=== PATIENT | female | born 1935 | race Caucasian/White ===

== ENCOUNTER 2021-04-02 09:35 | Inpatient (IN) | payer MEDICARE, BC ==
[2021-04-02] MEDS ORDERED: Sodium Chloride 0.9% 10 ML Syringe FLUSH PRN (09:43)
--- NOTE | 2021-04-02 10:01 | EDM.PDOC ---
ED HPI GENERAL MEDICAL PROBLEM - General Chief Complaint: Neuro Symptoms/Deficits Stated Complaint: MEDICAL [facility]IA [facility] Time Seen by Provider: 04/02/21 09:50 Source of Information: Reports: Patient, EMS, Family, Old Records History Limitations: Reports: Other (speech deficit) - History of Present Illness INITIAL COMMENTS - FREE TEXT/NARRATIVE: 85 yo female was found this AM on the floor of her apartment, lives in an assisted living situation. No known hx of afib. Has dementia. Is on ASA and Plavix. Not able to speak when found. Later developed R sided weakness that was not obviously there when found. Is a full code. 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: Other (see below) (none) - Related Data Allergies Allergy/AdvReac Type Severity Reaction Status Date / Time No Known Allergies Allergy Verified 04/02/21 09:44 Home Meds: Home Meds Aspirin [Halfprin] 81 mg PO DAILY 02/01/16 [History] Cholecalciferol (Vitamin D3) [Vitamin D3] 5,000 units PO DAILY 02/01/16 [History] Clopidogrel [Plavix] 75 mg PO DAILY 02/01/16 [History] Donepezil HCl [Aricept] 10 mg PO DAILY 02/01/16 [History] Losartan Potassium [Cozaar] 50 mg PO DAILY 02/01/16 [History] Memantine HCl [Namenda Xr] 28 mg PO DAILY 02/01/16 [History] Multivitamin with Minerals [Multiple Vitamin] 1 tab PO DAILY 02/01/16 [History] Naproxen [IJD: Naproxen] 500 mg PO BID PRN 02/01/16 [History] Polyethylene Glycol/Polyvinyl [Hypotears Eye Drops] 2 drop EYEBOTH BID 02/01/16 [History] amLODIPine [Norvasc] 5 mg PO DAILY 02/01/16 [History] atorvaSTATin [Lipitor] 40 mg PO DAILY 02/01/16 [History] carvediloL [Coreg] 25 mg PO BID 02/01/16 [History] raNITIdine HCl [Zantac] 300 mg PO DAILY 02/01/16 [History] Cefdinir [Omnicef] 300 mg PO BID #10 cap 02/03/16 [Rx] Insulin Glarg,Human.Rec.Analog [Lantus Solostar] 17 units SUBCUT BEDTIME #0 02/03/16 [Rx] Insulin Lispro [HumaLOG] 3 units SUBCUT TID #0 02/03/16 [Rx] Past Medical History HEENT History: Reports: Impaired Vision, Other (See Below) Other HEENT History: chronic dry eye Cardiovascular History: Reports: Hypertension Gastrointestinal History: Reports: GERD Genitourinary History: Reports: Chronic Renal Insuffiency, Renal Disease 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: Musculoskeletal History: Reports: Arthritis Neurological History: Reports: Alzheimers Disease Endocrine/Metabolic History: Reports: Diabetes, Type II, Osteoporosis - Infectious Disease History Infectious Disease History: Reports: Measles, Mumps - Past Surgical History Cardiovascular Surgical History: Reports: Carotid Endarterectomy Female Surgical History: Reports: Tubal Ligation ED ROS GENERAL - Review of Systems Review Of Systems: Unable To Obtain (expressive aphasia) Reason Not Obtained: CVA with expressive aphasia/dementia ED EXAM, NEURO - Physical Exam Exam: See Below Exam Limited By: No Limitations General Appearance: Alert, WD/WN, No Apparent Distress Eye Exam: Bilateral Eye: EOMI, Normal Inspection, PERRL (pupils equal, but pinpoint and minimally reactive to light) Ears: Normal External Exam, Normal Canal, Hearing Grossly Normal, Normal TMs Nose: Normal Inspection, No Blood Throat/Mouth: Normal Inspection, Normal Lips, Normal Oropharynx, No Airway Compromise Head Exam: Atraumatic, Normocephalic Neck: Normal Inspection Respiratory/Chest: No Respiratory Distress, Lungs Clear, Normal Breath Sounds, No Accessory Muscle Use Cardiovascular: No Edema, Irregularly Irregular GI/Abdominal: Normal Bowel Sounds, Soft, Non-Tender, No Distention Neurological: Alert, Other (hand grasp 4/5 bilat. Unable to lift either leg off the bed. Has more movement with the L arm, but unable to raise either over her head. ). No: Normal Mood/Affect, No Motor/Sensory Deficits, Oriented x 3 Extremities: Normal Inspection, Non-Tender, No Pedal Edema Psychiatric: Flat Affect Skin Exam: Warm, Dry, Intact, Normal Color, No Rash #1 Interpretation EKG Date: 04/02/21 Time: 10:10 Rhythm: NSR Rate (Beats/Min): 67 Bricelyn: Normal P-Wave: Present QRS: Normal ST-T: Normal QT: Normal Comparison: No Change Course - Vital Signs Text/Narrative:: Dr. Humphreys called @ 1130h Last Recorded V/S: Last Vital Signs Temp 36.8 C 04/02/21 10:11 Pulse 73 04/02/21 10:11 Resp 22 H 04/02/21 10:11 BP Pulse Ox 98 04/02/21 10:11 - Orders/Labs/Meds Orders: Active Orders 24 hr Category Date Time Status Cardiac Monitoring [RC] .As Directed Care 04/02/21 09:42 Active EKG Documentation Completion [RC] ASDIRECTED Care 04/02/21 09:51 Active CPK [CREATINE KINASE,CK] [CHEM] Stat Lab 04/02/21 10:01 Ordered UA W/MICROSCOPIC [URIN] Stat Lab 04/02/21 09:43 Ordered Sodium Chloride 0.9% [Saline Flush] Med 04/02/21 09:43 Active 10 ml FLUSH ASDIRECTED PRN Saline Lock Insert [OM.PC] Routine Oth 04/02/21 09:43 Ordered EKG 12 Lead [EK] Routine Ther 04/02/21 09:50 Ordered Medication Orders Sodium Chloride (Sodium Chloride 0.9% 10 Ml Syringe) 10 ml FLUSH ASDIRECTED PRN PRN Reason: Keep Vein Open Last Admin: 04/02/21 10:32 Dose: 10 ml Documented by: QUETA Labs: Laboratory Tests 04/02/21 04/02/21 04/02/21 Range/Units 09:43 09:43 10:16 WBC 13.5 H (4.5-11.0) K/uL RBC 5.04 (3.30-5.50) M/uL Hgb 16.4 H D (12.0-15.0) g/dL Hct 50.0 H (36.0-48.0) % MCV 99 H (80-98) fL MCH 33 H (27-31) pg MCHC 33 (32-36) % Plt Count 242 (150-400) K/uL Sodium (140-148) mmol/L Potassium (3.6-5.2) mmol/L Chloride (100-108) mmol/L Carbon Dioxide (21-32) mmol/L Anion Gap (5.0-14.0) mmol/L BUN (7-18) mg/dL Creatinine 0.8 (0.6-1.0) mg/dL Est Cr Clr Drug Dosing 45.20 mL/min Estimated GFR (MDRD) > 60 (>60) Glucose (74-106) mg/dL Calcium (8.5-10.1) mg/dL POC Troponin I 0.37 H* (0.00-0.08) Troponin I Cancelled Meds: Medications Generic Name Dose Route Start Last Admin Trade Name Freq PRN Reason Stop Dose Admin Sodium Chloride 10 ml 04/02/21 09:43 04/02/21 10:32 Sodium Chloride 0.9% 10 Ml Syringe FLUSH 10 ml ASDIRECTED PRN Administration Keep Vein Open - Radiology Interpretation Free Text/Narrative:: Head CT scan- Impression: There is likely evolving late subacute lacunar infarction of the left basal ganglia without evidence of large, territorial infarct. Findings were discussed with Dr. Goldsmith at 10:05 a.m. April 02, [address] that all [address] scans at this facility use dose modulation, iterative reconstruction, and/or weight-based dosing when appropriate to reduce radiation dose to as low as reasonably achievable. Dictated by Noé Miguel MD @ 04/02/2021 10:07:[address] Results Date: 04/02/21 CT Results Time: 10:05 Departure - Departure Time of Disposition: 12:00 Disposition: Admitted As Inpatient 67 Condition: Serious Clinical Impression: Non-STEMI (non-ST elevated myocardial infarction), Elevated blood sugar CVA (cerebral vascular accident) Qualifiers: CVA mechanism: unspecified Qualified Code(s): I63.9 - Cerebral infarction, unspecified - Discharge Information Referrals: PCP,None [Primary Care Provider] - Forms: ED Department Discharge Sepsis Event Note (ED) - Focused Exam Vital Signs: Vital Signs Temp Pulse Resp Pulse Ox 04/02/21 10:11 36.8 C 73 22 H 98 04/02/21 09:45 36.8 C 73 22 H 98 - My Orders Last 24 Hours: My Active Orders 04/02/21 09:42 Cardiac Monitoring [RC] .As Directed 04/02/21 09:43 UA W/MICROSCOPIC [URIN] Stat Sodium Chloride 0.9% [Saline Flush] 10 ml FLUSH ASDIRECTED PRN Saline Lock Insert [OM.PC] Routine 04/02/21 09:50 EKG 12 Lead [EK] Routine 04/02/21 09:51 EKG Documentation Completion [RC] ASDIRECTED 04/02/21 10:01 CPK [CREATINE KINASE,CK] [CHEM] Stat - Assessment/Plan Last 24 Hours: My Active Orders 04/02/21 09:42 Cardiac Monitoring [RC] .As Directed 04/02/21 09:43 UA W/MICROSCOPIC [URIN] Stat Sodium Chloride 0.9% [Saline Flush] 10 ml FLUSH ASDIRECTED PRN Saline Lock Insert [OM.PC] Routine 04/02/21 09:50 EKG 12 Lead [EK] Routine 04/02/21 09:51 EKG Documentation Completion [RC] ASDIRECTED 04/02/21 10:01 CPK [CREATINE KINASE,CK] [CHEM] Stat
--- NOTE | 2021-04-02 10:08 | CRLCT ---
For Patients: As a result of the Century Cures Act, medical imaging exams and procedure reports are released immediately into your electronic medical record. You may view this report before your referring provider. If you have questions, please contact your health care provider. Indication: New neurological deficit Technique: Volumetric multidetector CT images of the head were obtained without the administration of low osmolar intravenous contrast. Comparison: CT head December 29, 2012 Findings: There is no intra-axial or extra-axial fluid collection. There is no mass effect or midline shift. There is age-related cortical atrophy with moderate sulcal widening and ex vacuo dilatation of the lateral ventricles. There is likely evolving late subacute lacunar infarction of the left basal ganglia, otherwise there is grossly preserved blanco-white differentiation with moderate chronic small vessel disease changes. The orbits and their contents are grossly within normal limits. The bony calvarium is grossly intact. The paranasal sinuses are clear. The mastoid air cells are well aerated. Impression: There is likely evolving late subacute lacunar infarction of the left basal ganglia without evidence of large, territorial infarct. Findings were discussed with Dr. Goldsmith at 10:05 a.m. April 02, [address] note that all [address] scans at this facility use dose modulation, iterative reconstruction, and/or weight-based dosing when appropriate to reduce radiation dose to as low as reasonably achievable. Dictated by Noé Miguel MD @ 04/02/2021 10:07:[address] Noé Miguel @ Apr 02 2021 10:07AM
[2021-04-02] MEDS ORDERED: Lactated Ringers 1,000 ML IV SCH (11:45)
--- NOTE | 2021-04-02 15:11 | PCM.HP.2 ---
H&P History of Present Illness - General Date of Service: 04/02/21 Admit Problem/Dx: Admission Diagnosis/Problem Admission Diagnosis/Problem CVA, Cerebrovascular accident Source of Information: Family, Provider. No: Patient History Limitations: Reports: Altered Mental Status (dementia and dysarthria ) - History of Present Illness Initial Comments - Free Text/Narative: CC: found on floor HPI: Anabela was sent to the emergency room for evaluation after being found down on the floor. There was concern that she had a stroke with difficulty with speech production as well as some mild right-sided weakness. She is unable to provide much in the way of usable history because she does not recall the events of the last 24 hours and also has a great deal of difficulty with her dysarthria. History is gathered through emergency room personnel. Last known well time is unknown at this point. She was found during routine checks this morning. She is able to tell me that she does not have a headache and is not feeling chest pain or short of breath. She does not recall recent fevers or changes in bowel or bladder. 2 sons have been here and have been part of the discussion. The patient does not her head yes when we ask about her aerobic measures and a full CODE STATUS. Both of the sons feel that she would be better served with a comfort based approach given her poor quality of life. She is unwilling and unable to ambulate and requires a wheelchair to get around. They are both interested in hospice if she is able to qualify. Work-up in the emergency room did suggest a left-sided basal ganglia stroke and she also has a troponin elevation of 0.37. The patient and her 2 sons do not want her to be transferred for aggressive intervention given her poor quality of life. They would like to try to medically manage things here and see how she progresses over the next couple of days. - Related Data Allergies/Adverse Reactions: Allergies Allergy/AdvReac Type Severity Reaction Status Date / Time No Known Allergies Allergy Verified 04/02/21 09:44 Home Medications: Home Meds Aspirin [Halfprin] 81 mg PO DAILY 02/01/16 [History] Cholecalciferol (Vitamin D3) [Vitamin D3] 5,000 units PO DAILY 02/01/16 [History] Clopidogrel [Plavix] 75 mg PO DAILY 02/01/16 [History] Donepezil HCl [Aricept] 10 mg PO BEDTIME 02/01/16 [History] Losartan Potassium [Cozaar] 50 mg PO BID 02/01/16 [History] Multivitamin with Minerals [Multiple Vitamin] 1 tab PO DAILY 02/01/16 [History] Polyethylene Glycol/Polyvinyl [Hypotears Eye Drops] 2 drop EYEBOTH TID 02/01/16 [History] amLODIPine [Norvasc] 5 mg PO DAILY 02/01/16 [History] atorvaSTATin [Lipitor] 40 mg PO DAILY 02/01/16 [History] carvediloL [Coreg] 25 mg PO BID 02/01/16 [History] Famotidine 40 mg PO BEDTIME 04/02/21 [History] Insulin Glarg,Human.Rec.Analog [Lantus Solostar] 22 units SUBCUT BEDTIME 04/02/21 [History] Insulin Lispro [HumaLOG] 6 units SUBCUT BID 04/02/21 [History] Melatonin 3 mg PO BEDTIME 04/02/21 [History] Memantine HCl 10 mg PO BID 04/02/21 [History] hydroCHLOROthiazide [Hydrochlorothiazide] 25 mg PO DAILY 04/02/21 [History] Past Medical History HEENT History: Reports: Impaired Vision, Other (See Below) Other HEENT History: chronic dry eye Cardiovascular History: Reports: Hypertension Gastrointestinal History: Reports: GERD Genitourinary History: Reports: Chronic Renal Insuffiency, Renal Disease 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: Musculoskeletal History: Reports: Arthritis Neurological History: Reports: Alzheimers Disease Endocrine/Metabolic History: Reports: Diabetes, Type II, Osteoporosis - Infectious Disease History Infectious Disease History: Reports: Measles, Mumps - Past Surgical History Cardiovascular Surgical History: Reports: Carotid Endarterectomy Female Surgical History: Reports: Tubal Ligation Social & Family History - Family History Family Medical History: Unobtainable (Dysarthria and dementia) - Tobacco Use Tobacco Use Status *Q: Unknown Ever Used Tobacco - Caffeine Use Caffeine Use: Reports: None H&P Review of Systems - Review of Systems: Review Of Systems: Unable To Obtain Reason Not Obtained: Dysarthria and dementia Exam - Exam Exam: See Below - Vital Signs Vital Signs: Last Vital Signs Temp 36.8 C 04/02/21 10:11 Pulse 73 04/02/21 10:11 Resp 22 H 04/02/21 10:11 BP Pulse Ox 98 04/02/21 10:11 Weight: 77.111 kg - Exam Quality Assessment: No: Supplemental Oxygen General: Alert, Cooperative. No: Oriented, Mild Distress HEENT: Conjunctiva Clear. No: Mucosa Moist & [place] (dry) Neck: Supple, Trachea Midline. No: JVD Lungs: Clear to Auscultation, Normal Respiratory Effort Cardiovascular: Regular Rate, Regular Rhythm. No: Systolic Murmur GI/Abdominal Exam: Normal Bowel Sounds, Soft, Non-Tender, No Distention Extremities: No Pedal Edema. No: Increased Warmth Peripheral Pulses: 2+: Dorsalis Pedis (L), Dorsalis Pedis (R) Skin: Warm, Dry. No: Rash Neuro Extensive - Mental Status: Alert, Nl Response to Commands. 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 No: Abnormal Sensation Psychiatric: Alert, Normal Affect. No: Agitated - Patient Data Lab Results Last 24 hrs: Laboratory Results - last 24 hr 04/02/21 04/02/21 04/02/21 Range/Units 09:43 09:43 10:01 WBC 13.5 H (4.5-11.0) K/uL RBC 5.04 (3.30-5.50) M/uL Hgb 16.4 H D (12.0-15.0) g/dL Hct 50.0 H (36.0-48.0) % MCV 99 H (80-98) fL MCH 33 H (27-31) pg MCHC 33 (32-36) % Plt Count 242 (150-400) K/uL Sodium (140-148) mmol/L Potassium (3.6-5.2) mmol/L Chloride (100-108) mmol/L Carbon Dioxide (21-32) mmol/L Anion Gap (5.0-14.0) mmol/L BUN (7-18) mg/dL Creatinine 0.8 (0.6-1.0) mg/dL Est Cr Clr Drug Dosing 45.20 mL/min Estimated GFR (MDRD) > 60 (>60) Glucose (74-106) mg/dL Calcium (8.5-10.1) mg/dL Creatine Kinase 207 H (26-192) U/L POC Troponin I (0.00-0.08) Troponin I Cancelled 04/02/21 Range/Units 10:16 WBC (4.5-11.0) K/uL RBC (3.30-5.50) M/uL Hgb (12.0-15.0) g/dL Hct (36.0-48.0) % MCV (80-98) fL MCH (27-31) pg MCHC (32-36) % Plt Count (150-400) K/uL Sodium (140-148) mmol/L Potassium (3.6-5.2) mmol/L Chloride (100-108) mmol/L Carbon Dioxide (21-32) mmol/L Anion Gap (5.0-14.0) mmol/L BUN (7-18) mg/dL Creatinine (0.6-1.0) mg/dL Est Cr Clr Drug Dosing mL/min Estimated GFR (MDRD) (>60) Glucose (74-106) mg/dL Calcium (8.5-10.1) mg/dL Creatine Kinase (26-192) U/L POC Troponin I 0.37 H* (0.00-0.08) Troponin I Result Diagrams: 04/02/21 09:43 04/02/21 09:43 Imaging Impressions Last 24 hrs: Head CT-these images were personally reviewed and the radiologist interpretation noted-there is evidence for a probable subacute infarct involving the left basal ganglia. There is some age related atrophy. No mass, bleed or other acute finding. Sepsis Event Note - Evaluation Sepsis Screening Result: No Definite Risk - Focused Exam Vital Signs: Vital Signs Temp Pulse Resp Pulse Ox 04/02/21 10:11 36.8 C 73 22 H 98 04/02/21 09:45 36.8 C 73 22 H 98 *Q Meaningful Use (ADM) - VTE Risk Assess *Q Each Risk Factor Represents 1 Point: Obesity ( BMI > 25 kg/m2) Total Score 1 Point Risk Factors: 1 Each Risk Factor Represents 2 Points: None Total Score 2 Point Risk Factors: 0 Each Risk Factor Represents 3 Points: Age 75 Years or Greater Total Score 3 Point Risk Factors: 3 Each Risk Factor Represents 5 Points: Stroke, Less than 1 Month Total Score 5 Point Risk Factors: 5 Venous Thromboembolism Risk Factor Score *Q: 9 - Problem List (1) CVA (cerebral vascular accident) SNOMED Code(s): 750352460 ICD Code: I63.9 - CEREBRAL INFARCTION, UNSPECIFIED Status: Acute Current Visit: Yes Qualifiers: CVA mechanism: unspecified Qualified Code(s): I63.9 - Cerebral infarction, unspecified (2) Non-STEMI (non-ST elevated myocardial infarction) SNOMED Code(s): 45941788 ICD Code: I21.4 - NON-ST ELEVATION (NSTEMI) MYOCARDIAL INFARCTION Status: Acute Current Visit: Yes (3) Hyperglycemia due to type 2 diabetes mellitus SNOMED Code(s): 421593069133341, 229239485937137 ICD Code: E11.65 - TYPE 2 DIABETES MELLITUS WITH HYPERGLYCEMIA Status: Chronic Current Visit: No Qualifiers: 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: with detention use Qualified Code(s): E11.65 - Type 2 diabetes mellitus with hyperglycemia (4) Mild cognitive impairment with memory loss SNOMED Code(s): 928170949 ICD Code: G31.84 - MILD COGNITIVE IMPAIRMENT, SO STATED Status: Chronic Current Visit: No Problem List Initiated/Reviewed/Updated: Yes Orders Last 24hrs: Active Orders 24 hr Category Date Time Status Patient Status Manage Transfer [TRANSFER] Routine ADT 04/02/21 14:55 Active Cardiac Monitoring [RC] .As Directed Care 04/02/21 09:42 Active EKG Documentation Completion [RC] ASDIRECTED Care 04/02/21 09:51 Active TROPONIN I [CHEM] Urgent Lab 04/02/21 14:55 Ordered UA W/MICROSCOPIC [URIN] Stat Lab 04/02/21 09:43 Ordered Lactated Ringers [Ringers, Lactated] 1,000 ml Med 04/02/21 11:45 Active IV ASDIRECTED Sodium Chloride 0.9% [Saline Flush] Med 04/02/21 09:43 Active 10 ml FLUSH ASDIRECTED PRN Saline Lock Insert [OM.PC] Routine Oth 04/02/21 09:43 Ordered Resuscitation Status Routine Resus Stat 04/02/21 14:56 Ordered EKG 12 Lead [EK] Routine Ther 04/02/21 09:50 Ordered Medication Orders Lactated Ringer's (Ringers, Lactated) 1,000 mls @ 125 mls/hr IV ASDIRECTED MYLES Last Admin: 04/02/21 11:50 Dose: 125 mls/hr Documented by: QUETA Sodium Chloride (Sodium Chloride 0.9% 10 Ml Syringe) 10 ml FLUSH ASDIRECTED PRN PRN Reason: Keep Vein Open Last Admin: 04/02/21 10:32 Dose: 10 ml Documented by: QUETA Assessment/Plan Comment:: ASSESSMENT AND PLAN - 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 Last known well time is unknown and patient is out of the window for any sort of thrombolytics or aggressive neurology intervention. Family does not want aggressive cares given her poor quality of life. -Continue antiplatelet therapy -Enoxaparin as below -Physical therapy, occupational therapy and speech pathology -Consider hospice Non-ST elevation myocardial infarction-EKG did not suggest ischemia. We have only a single troponin at this time but there is a a moderate elevation. This could be stress related to the stroke as well. Vital signs are somewhat sporadic with blood pressure elevation but her heart rate is stable. -Enoxaparin every 12 hours times at least 24 if not 48 hours -Continue medical management including beta-ramsey and antiplatelet therapy -Serial troponin levels Alzheimer's dementia without behavioral disturbance-patient had been living independently with assisted living prior to the episode this morning. -Melatonin at bedtime Insulin-dependent diabetes mellitus-unclear how well the patient will do with the day so we will hold off on long-acting insulin at this time. -Sliding scale insulin Maintenance issues - -DVT prophylaxis-enoxaparin -GI prophylaxis-not indicated -Nutrition-regular diabetic -Win catheter-could be considered for comfort if she does transition to end-of-life care but will hold off at this time CODE STATUS - Full Code per patient Admission justification -this patient will be admitted for inpatient services and is medically appropriate meeting medical necessity for inpatient admission as outlined in my documentation. I reasonably expect the patient will require inpatient services that span a period time over 2 midnights. I reasonably expect this patient to be discharged or transferred within 96 hours [facility]. Disposition -I anticipate discharge to a half-way facility after the hospital stay, possibly with hospice Primary care physician - Deshaun Humphreys M.D. - Mortality Measure Prognosis:: Poor
[2021-04-02] MEDS ORDERED: Acetaminophen 325 MG Tab PO PRN (15:39)
[2021-04-02] MEDS ORDERED: Albuterol 0.083% 2.5 MG/3 ML Neb Soln NEB PRN (15:39)
[2021-04-02] MEDS ORDERED: Ondansetron 4 MG/2 ML SDV IV PRN (15:39)
[2021-04-02] MEDS ORDERED: Ondansetron 4 MG Tab.DIS PO PRN (15:39)
[2021-04-02] MEDS ORDERED: LORazepam 2 MG/ML SDV IVPUSH PRN (15:39)
[2021-04-02] MEDS ORDERED: Magnesium Hydroxide 400 MG/5 ML Susp 30 ML Cup PO PRN (15:39)
[2021-04-02] MEDS: Enoxaparin 80 MG/0.8 ML Syringe SUBCUT SCH (16:36)
[2021-04-02] MEDS: Insulin Lispro 100 Unit/ML 3 ML KwikPen SUBCUT SCH ×2 (16:38→21:30)
[2021-04-02] MEDS: Hypromellose 0.3% Ophth Soln 15 ML Bottle EYEBOTH SCH (20:04)
[2021-04-02] MEDS: Famotidine 20 MG Tab PO SCH (20:04)
[2021-04-02] MEDS: Donepezil 10 MG Tab PO SCH (20:04)
[2021-04-02] MEDS: Melatonin 3 MG Tab PO SCH (20:04)
[2021-04-02] MEDS: Memantine 10 MG Tab PO SCH (20:04)
[2021-04-02] MEDS ORDERED: Non-Formulary Medication 1 Each (Carvedilol [Coreg] 25 MG Tablet) PO SCH (21:00)
[2021-04-02] MEDS ORDERED: [UNRECOGNIZED DRUG - OTHER] EYEBOTH SCH (21:00)
[2021-04-02] MEDS ORDERED: Non-Formulary Medication 1 Each (Famotidine [Famotidine] 40 MG Tablet) PO SCH (21:00)
[2021-04-02] MEDS ORDERED: POLYETHYLENE GLYCOL EYEBOTH SCH (21:00)
[2021-04-02] MEDS: Losartan 50 MG Tab PO SCH (21:20)
[2021-04-02] MEDS: Carvedilol 12.5 MG Tab PO SCH (21:39)
[2021-04-03] MEDS: Enoxaparin 80 MG/0.8 ML Syringe SUBCUT SCH ×2 (04:22→15:56)
[2021-04-03] MEDS ORDERED: Non-Formulary Medication 1 Each (Atorvastatin [Lipitor] 40 MG Tablet) PO SCH (09:00)
[2021-04-03] MEDS: Insulin Lispro 100 Unit/ML 3 ML KwikPen SUBCUT SCH ×4 (09:01→21:33)
[2021-04-03] MEDS: Hypromellose 0.3% Ophth Soln 15 ML Bottle EYEBOTH SCH ×3 (09:05→21:56)
[2021-04-03] MEDS: Carvedilol 12.5 MG Tab PO SCH ×2 (11:14→21:56)
[2021-04-03] MEDS: Hydrochlorothiazide 25 MG Tab PO SCH (11:14)
[2021-04-03] MEDS: Aspirin 81 MG Tab.EC PO SCH (11:14)
[2021-04-03] MEDS: Memantine 10 MG Tab PO SCH ×2 (11:14→21:56)
[2021-04-03] MEDS: atorvaSTATin 20 MG Tab PO SCH (11:14)
[2021-04-03] MEDS: Losartan 50 MG Tab PO SCH ×2 (11:14→21:56)
[2021-04-03] MEDS: amLODIPine 5 MG Tab PO SCH (11:15)
[2021-04-03] MEDS: Clopidogrel 75 MG Tab PO SCH (11:15)
--- NOTE | 2021-04-03 14:15 | PCM.PN ---
- General Info Date of Service: 04/03/21 Subjective Update: No acute events overnight. Troponin level peaked at just over 0.5 and has plateaued. Patient is quite lethargic this morning and is unable to answer any questions. Blood pressures were labile overnight but have stabilized in the 130-140 range this morning. She has not had any fevers. Family was updated about her current condition. Physical therapy and Occupational Therapy have not been able to work with her as of yet and speech pathology is not available until Tuesday. - Review of Systems General: Denies: Fever - Patient Data Vitals - Most Recent: Last Vital Signs Temp 35 C L 04/03/21 11:15 Pulse 71 04/03/21 11:15 Resp 18 04/03/21 11:15 BP 152/56 H 04/03/21 11:15 Pulse Ox 95 04/03/21 11:15 Weight - Most Recent: 71.668 kg Lab Results Last 24 Hours: Laboratory Results - last 24 hr 04/02/21 04/02/21 04/02/21 Range/Units 15:20 16:25 20:00 WBC (4.5-11.0) K/uL RBC (3.30-5.50) M/uL Hgb (12.0-15.0) g/dL Hct (36.0-48.0) % MCV (80-98) fL MCH (27-31) pg MCHC (32-36) % Plt Count (150-400) K/uL Sodium (140-148) mmol/L Potassium (3.6-5.2) mmol/L Chloride (100-108) mmol/L Carbon Dioxide (21-32) mmol/L Anion Gap (5.0-14.0) mmol/L BUN (7-18) mg/dL Creatinine (0.6-1.0) mg/dL Est Cr Clr Drug Dosing mL/min Estimated GFR (MDRD) (>60) Glucose (74-106) mg/dL POC Glucose 220 H (74-106) mg/dL Calcium (8.5-10.1) mg/dL Troponin I 0.532 H* 0.559 H* (0.000-0.056) ng/mL 04/02/21 04/02/21 04/03/21 Range/Units 21:17 22:45 04:00 WBC 10.2 (4.5-11.0) K/uL RBC 3.97 (3.30-5.50) M/uL Hgb 12.6 D (12.0-15.0) g/dL Hct 39.8 (36.0-48.0) % MCV 100 H (80-98) fL MCH 32 H (27-31) pg MCHC 32 (32-36) % Plt Count 252 (150-400) K/uL Sodium (140-148) mmol/L Potassium (3.6-5.2) mmol/L Chloride (100-108) mmol/L Carbon Dioxide (21-32) mmol/L Anion Gap (5.0-14.0) mmol/L BUN (7-18) mg/dL Creatinine (0.6-1.0) mg/dL Est Cr Clr Drug Dosing mL/min Estimated GFR (MDRD) (>60) Glucose (74-106) mg/dL POC Glucose 117 H (74-106) mg/dL Calcium (8.5-10.1) mg/dL Troponin I 0.469 H* (0.000-0.056) ng/mL 04/03/21 04/03/21 04/03/21 Range/Units 04:00 04:00 07:33 WBC (4.5-11.0) K/uL RBC (3.30-5.50) M/uL Hgb (12.0-15.0) g/dL Hct (36.0-48.0) % MCV (80-98) fL MCH (27-31) pg MCHC (32-36) % Plt Count (150-400) K/uL Sodium 142 (140-148) mmol/L Potassium 4.3 (3.6-5.2) mmol/L Chloride 105 (100-108) mmol/L Carbon Dioxide 21 (21-32) mmol/L Anion Gap 16.1 H (5.0-14.0) mmol/L BUN 18 (7-18) mg/dL Creatinine 0.9 (0.6-1.0) mg/dL Est Cr Clr Drug Dosing 40.18 mL/min Estimated GFR (MDRD) 60 (>60) Glucose 178 H (74-106) mg/dL POC Glucose 163 H (74-106) mg/dL Calcium 8.4 L (8.5-10.1) mg/dL Troponin I 0.365 H* (0.000-0.056) ng/mL 04/03/21 Range/Units 11:24 WBC (4.5-11.0) K/uL RBC (3.30-5.50) M/uL Hgb (12.0-15.0) g/dL Hct (36.0-48.0) % MCV (80-98) fL MCH (27-31) pg MCHC (32-36) % Plt Count (150-400) K/uL Sodium (140-148) mmol/L Potassium (3.6-5.2) mmol/L Chloride (100-108) mmol/L Carbon Dioxide (21-32) mmol/L Anion Gap (5.0-14.0) mmol/L BUN (7-18) mg/dL Creatinine (0.6-1.0) mg/dL Est Cr Clr Drug Dosing mL/min Estimated GFR (MDRD) (>60) Glucose (74-106) mg/dL POC Glucose 145 H (74-106) mg/dL Calcium (8.5-10.1) mg/dL Troponin I (0.000-0.056) ng/mL Med Orders - Current: Current Medications Acetaminophen (Acetaminophen 325 Mg Tab) 650 mg PO Q4H PRN PRN Reason: Pain (Mild 1-3)/fever Albuterol (Albuterol 0.083% 2.5 Mg/3 Ml Neb Soln) 2.5 mg NEB Q4H PRN PRN Reason: Shortness Of Breath/wheezing Amlodipine Besylate (Amlodipine 5 Mg Tab) 5 mg PO DAILY [facility] Last Admin: 04/03/21 11:15 Dose: Not Given Documented by: Artificial Tears (Hypromellose 0.3% Ophth Soln 15 Ml Bottle) 0 ml EYEBOTH TID [facility] Last Admin: 04/03/21 09:05 Dose: Not Given Documented by: Aspirin (Aspirin 81 Mg Tab.Ec) 81 mg PO DAILY [facility] Last Admin: 04/03/21 11:14 Dose: Not Given Documented by: Atorvastatin Calcium (Atorvastatin 20 Mg Tab) 80 mg PO DAILY [facility] Last Admin: 04/03/21 11:14 Dose: Not Given Documented by: Carvedilol (Carvedilol 12.5 Mg Tab) 25 mg PO BID [facility] Last Admin: 04/03/21 11:14 Dose: Not Given Documented by: Clopidogrel Bisulfate (Clopidogrel 75 Mg Tab) 75 mg PO DAILY [facility] Last Admin: 04/03/21 11:15 Dose: Not Given Documented by: Donepezil HCl (Donepezil 10 Mg Tab) 10 mg PO BEDTIME [facility] Last Admin: 04/02/21 20:04 Dose: 10 mg Documented by: Enoxaparin Sodium (Enoxaparin 80 Mg/0.8 Ml Syringe) 75 mg 1 mg/kg (75 mg) SUBCUT Q12H [facility] Last Admin: 04/03/21 04:22 Dose: 75 mg Documented by: Famotidine (Famotidine 20 Mg Tab) 40 mg PO BEDTIME [facility] Last Admin: 04/02/21 20:04 Dose: 40 mg Documented by: Hydrochlorothiazide (Hydrochlorothiazide 25 Mg Tab) 25 mg PO DAILY [facility] Last Admin: 04/03/21 11:14 Dose: Not Given Documented by: Insulin Human Lispro (Insulin Lispro 100 Unit/Ml 3 Ml Kwikpen) 0 unit SUBCUT QIDACANDBED [facility]; Protocol Last Admin: 04/03/21 11:55 Dose: Not Given Documented by: Lorazepam (Lorazepam 2 Mg/Ml Sdv) 0.5 mg IVPUSH Q4H PRN PRN Reason: Nausea/Vomiting Losartan Potassium (Losartan 50 Mg Tab) 50 mg PO BID [facility] Last Admin: 04/03/21 11:14 Dose: Not Given Documented by: Magnesium Hydroxide (Magnesium Hydroxide 400 Mg/5 Ml Susp 30 Ml Cup) 30 ml PO Q12H PRN PRN Reason: Constipation Melatonin (Melatonin 3 Mg Tab) 9 mg PO BEDTIME [facility] Last Admin: 04/02/21 20:04 Dose: 9 mg Documented by: Memantine (Memantine 10 Mg Tab) 10 mg PO BID [facility] Last Admin: 04/03/21 11:14 Dose: Not Given Documented by: Ondansetron HCl (Ondansetron 4 Mg/2 Ml Sdv) 4 mg IV Q6H PRN PRN Reason: Nausea/Vomiting Ondansetron HCl (Ondansetron 4 Mg Tab.Dis) 4 mg PO Q6H PRN PRN Reason: Nausea able to take PO Senna/Docusate Sodium (Docusate Sodium/Sennosides 50-8.6 Mg Tab) 1 tab PO BID PRN PRN Reason: Constipation Sodium Chloride (Sodium Chloride 0.9% 10 Ml Syringe) 10 ml FLUSH ASDIRECTED PRN PRN Reason: Keep Vein Open Last Admin: 04/02/21 10:32 Dose: 10 ml Documented by: Discontinued Medications Lactated Ringer's (Ringers, Lactated) 1,000 mls @ 125 mls/hr IV ASDIRECTED MYLES Last Admin: 04/02/21 11:50 Dose: 125 mls/hr Documented by: - Exam General: No Acute Distress, Lethargic. No: Alert Lungs: Clear to Auscultation, Normal Respiratory Effort Cardiovascular: Regular Rate, Regular Rhythm GI/Abdominal Exam: Soft, No Distention Extremities: No Pedal Edema. No: Increased Warmth Skin: Warm, Dry Psy/Mental Status: No: Alert, Agitated - Patient Data Lab Results Last 24 hrs: Laboratory Results - last 24 hr 04/02/21 04/02/21 04/02/21 Range/Units 15:20 16:25 20:00 WBC (4.5-11.0) K/uL RBC (3.30-5.50) M/uL Hgb (12.0-15.0) g/dL Hct (36.0-48.0) % MCV (80-98) fL MCH (27-31) pg MCHC (32-36) % Plt Count (150-400) K/uL Sodium (140-148) mmol/L Potassium (3.6-5.2) mmol/L Chloride (100-108) mmol/L Carbon Dioxide (21-32) mmol/L Anion Gap (5.0-14.0) mmol/L BUN (7-18) mg/dL Creatinine (0.6-1.0) mg/dL Est Cr Clr Drug Dosing mL/min Estimated GFR (MDRD) (>60) Glucose (74-106) mg/dL POC Glucose 220 H (74-106) mg/dL Calcium (8.5-10.1) mg/dL Troponin I 0.532 H* 0.559 H* (0.000-0.056) ng/mL 04/02/21 04/02/21 04/03/21 Range/Units 21:17 22:45 04:00 WBC 10.2 (4.5-11.0) K/uL RBC 3.97 (3.30-5.50) M/uL Hgb 12.6 D (12.0-15.0) g/dL Hct 39.8 (36.0-48.0) % MCV 100 H (80-98) fL MCH 32 H (27-31) pg MCHC 32 (32-36) % Plt Count 252 (150-400) K/uL Sodium (140-148) mmol/L Potassium (3.6-5.2) mmol/L Chloride (100-108) mmol/L Carbon Dioxide (21-32) mmol/L Anion Gap (5.0-14.0) mmol/L BUN (7-18) mg/dL Creatinine (0.6-1.0) mg/dL Est Cr Clr Drug Dosing mL/min Estimated GFR (MDRD) (>60) Glucose (74-106) mg/dL POC Glucose 117 H (74-106) mg/dL Calcium (8.5-10.1) mg/dL Troponin I 0.469 H* (0.000-0.056) ng/mL 04/03/21 04/03/21 04/03/21 Range/Units 04:00 04:00 07:33 WBC (4.5-11.0) K/uL RBC (3.30-5.50) M/uL Hgb (12.0-15.0) g/dL Hct (36.0-48.0) % MCV (80-98) fL MCH (27-31) pg MCHC (32-36) % Plt Count (150-400) K/uL Sodium 142 (140-148) mmol/L Potassium 4.3 (3.6-5.2) mmol/L Chloride 105 (100-108) mmol/L Carbon Dioxide 21 (21-32) mmol/L Anion Gap 16.1 H (5.0-14.0) mmol/L BUN 18 (7-18) mg/dL Creatinine 0.9 (0.6-1.0) mg/dL Est Cr Clr Drug Dosing 40.18 mL/min Estimated GFR (MDRD) 60 (>60) Glucose 178 H (74-106) mg/dL POC Glucose 163 H (74-106) mg/dL Calcium 8.4 L (8.5-10.1) mg/dL Troponin I 0.365 H* (0.000-0.056) ng/mL 04/03/21 Range/Units 11:24 WBC (4.5-11.0) K/uL RBC (3.30-5.50) M/uL Hgb (12.0-15.0) g/dL Hct (36.0-48.0) % MCV (80-98) fL MCH (27-31) pg MCHC (32-36) % Plt Count (150-400) K/uL Sodium (140-148) mmol/L Potassium (3.6-5.2) mmol/L Chloride (100-108) mmol/L Carbon Dioxide (21-32) mmol/L Anion Gap (5.0-14.0) mmol/L BUN (7-18) mg/dL Creatinine (0.6-1.0) mg/dL Est Cr Clr Drug Dosing mL/min Estimated GFR (MDRD) (>60) Glucose (74-106) mg/dL POC Glucose 145 H (74-106) mg/dL Calcium (8.5-10.1) mg/dL Troponin I (0.000-0.056) ng/mL Result Diagrams: 04/03/21 04:00 04/03/21 04:00 Sepsis Event Note - Evaluation Sepsis Screening Result: No Definite Risk - Focused Exam Vital Signs: Vital Signs Temp Pulse Resp BP Pulse Ox 04/03/21 11:15 35 C L 71 18 152/56 H 95 04/03/21 07:00 35.3 C L 73 18 159/96 H 100 04/03/21 04:23 35 C L 66 16 160/53 H 91 L - Problem List & Annotations (1) CVA (cerebral vascular accident) SNOMED Code(s): 413006139 Code(s): I63.9 - CEREBRAL INFARCTION, UNSPECIFIED Status: Acute Current Visit: Yes Qualifiers: CVA mechanism: unspecified Qualified Code(s): I63.9 - Cerebral infarction, unspecified (2) Non-STEMI (non-ST elevated myocardial infarction) SNOMED Code(s): 96408571 Code(s): I21.4 - NON-ST ELEVATION (NSTEMI) MYOCARDIAL INFARCTION Status: Acute Current Visit: Yes (3) Hyperglycemia due to type 2 diabetes mellitus SNOMED Code(s): 788422109621763, 003363388240182 Code(s): E11.65 - TYPE 2 DIABETES MELLITUS WITH HYPERGLYCEMIA Status: Chronic Current Visit: No Qualifiers: Diabetes mellitus long-term insulin use: with long-term use Qualified Code(s): E11.65 - Type 2 diabetes mellitus with hyperglycemia; Z79.4 - FPC (current) use of insulin (4) Mild cognitive impairment with memory loss SNOMED Code(s): 460549118 Code(s): G31.84 - MILD COGNITIVE IMPAIRMENT, SO STATED Status: Chronic Current Visit: No - Problem List Review Problem List Initiated/Reviewed/Updated: Yes - My Orders Last 24 Hours: My Active Orders 04/02/21 14:56 Resuscitation Status Routine 04/02/21 15:39 Acetaminophen [TylenoL] 650 mg PO Q4H PRN Albuterol [Proventil Neb Soln] 2.5 mg NEB Q4H PRN Docusate Sodium/Sennosides [Senna Plus] 1 tab PO BID PRN LORazepam [Ativan] 0.5 mg IVPUSH Q4H PRN Magnesium Hydroxide [Milk of Magnesia] 30 ml PO Q12H PRN Ondansetron [Zofran ODT] 4 mg PO Q6H PRN Ondansetron [Zofran] 4 mg IV Q6H PRN 04/02/21 15:39 Patient Status [ADT] Routine Cardiac Monitoring [RC] CONTINUOUS Communication Order [RC] PRN Communication Order [RC] PRN Diabetes Education [RC] Click to Edit Intake and Output [RC] QSHIFT Notify Provider Vital Signs [RC] ASDIRECTED Notify Provider [RC] PRN Oxygen Therapy [RC] PRN RT Aerosol Therapy [RC] ASDIRECTED Up With Assistance [RC] ASDIRECTED VTE/DVT Education [RC] Per Unit Routine Vital Signs [RC] Q4H OT Evaluation and Treatment [CONS] Routine PT Evaluation and Treatment [CONS] Routine [employer]CHIT[employer] Evaluation and Treatment [CONS] Routine 04/02/21 16:00 Enoxaparin [Lovenox] 75 mg SUBCUT Q12H 04/02/21 Dinner Consistent Carbohydrate Diet [DIET] Insulin Lispro [HumaLOG] See Protocol SUBCUT QIDACANDBED 04/02/21 21:00 Donepezil [Aricept] 10 mg PO BEDTIME Famotidine [Pepcid] 40 mg PO BEDTIME Hypromellose [GenTeal Mild to Moderate Ophth Soln] 0 ml EYEBOTH TID Losartan [Cozaar] 50 mg PO BID Melatonin 9 mg PO BEDTIME Memantine [Namenda] 10 mg PO BID carvediloL [Coreg] 25 mg PO BID 04/03/21 09:00 Aspirin [Halfprin] 81 mg PO DAILY Clopidogrel [Plavix] 75 mg PO DAILY amLODIPine [Norvasc] 5 mg PO DAILY atorvaSTATin [Lipitor] 80 mg PO DAILY hydroCHLOROthiazide 25 mg PO DAILY 04/03/21 16:30 GLUCOSE POC LAB TO COLLECT JPM [POC] QIDADB04/03/21 21:00 GLUCOSE POC LAB TO COLLECT JPM [POC] QIDADB04/04/21 07:30 GLUCOSE POC LAB TO COLLECT JPM [POC] QIDACANDBED 04/04/21 11:30 GLUCOSE POC LAB TO COLLECT JPM [POC] QIDACANDB04/04/21 16:30 GLUCOSE POC LAB TO COLLECT JPM [POC] QIDACANDB04/04/21 21:00 GLUCOSE POC LAB TO COLLECT JPM [POC] QIDACANDB04/05/21 07:30 GLUCOSE POC LAB TO COLLECT JPM [POC] QIDADB04/05/21 11:30 GLUCOSE POC LAB TO COLLECT JPM [POC] QIDACANDBED 04/05/21 16:30 GLUCOSE POC LAB TO COLLECT JPM [POC] QIDACANDBED 04/05/21 21:00 GLUCOSE POC LAB TO COLLECT JPM [POC] QIDACANDBED 04/06/21 07:30 GLUCOSE POC LAB TO COLLECT JPM [POC] QIDACANDBED 04/06/21 11:30 GLUCOSE POC LAB TO COLLECT JPM [POC] QIDACANDBED 04/06/21 16:30 GLUCOSE POC LAB TO COLLECT JPM [POC] QIDACANDBED 04/06/21 21:00 GLUCOSE POC LAB TO COLLECT JPM [POC] QIDACANDBED 04/07/21 07:30 GLUCOSE POC LAB TO COLLECT JPM [POC] QIDACANDBED 04/07/21 11:30 GLUCOSE POC LAB TO COLLECT JPM [POC] QIDACANDBED 04/07/21 16:30 GLUCOSE POC LAB TO COLLECT JPM [POC] QIDACANDBED 04/07/21 21:00 GLUCOSE POC LAB TO COLLECT JPM [POC] QIDACANDBED - Plan Plan:: ASSESSMENT AND PLAN - 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 Stable overnight. Unable to assess deficits today because of lethargy. Unclear if this is related to the stroke or if she is just exhausted from a busy day yesterday. -Continue antiplatelet therapy -Enoxaparin as below -Physical therapy, occupational therapy and speech pathology -Consider hospice Non-ST elevation myocardial infarction-EKG did not suggest ischemia. Troponin level peaked around 0.5 and has plateaued. Patient lethargic today. Family not interested in aggressive work-up or intervention. -Enoxaparin every 12 hours times at least 24 if not 48 hours -Continue medical management including beta-ramsey and antiplatelet therapy -Serial troponin levels Alzheimer's dementia without behavioral disturbance-patient had been living independently with assisted living prior to the episode. She will likely require intermediate facility placement. -Melatonin at bedtime Insulin-dependent diabetes mellitus-no significant intake so far so we will hold off on any long-acting insulin. -Sliding scale insulin Maintenance issues - -DVT prophylaxis-enoxaparin -GI prophylaxis-not indicated -Nutrition-regular diabetic -Win catheter-could be considered for comfort if she does transition to end-of-life care but will hold off at this time CODE STATUS - Full Code per patient, 2 sons, one is the power of assistant district attorney are both leaning towards transition to comfort cares Disposition -I anticipate discharge to a intermediate facility after the hospital stay, possibly with hospice Primary care physician - Deshaun Humphreys M.D.
[2021-04-03] MEDS: Donepezil 10 MG Tab PO SCH (21:56)
[2021-04-03] MEDS: Melatonin 3 MG Tab PO SCH (21:56)
[2021-04-03] MEDS: Famotidine 20 MG Tab PO SCH (21:56)
[2021-04-04] MEDS: Enoxaparin 80 MG/0.8 ML Syringe SUBCUT SCH ×2 (04:42→15:36)
[2021-04-04] MEDS: Insulin Lispro 100 Unit/ML 3 ML KwikPen SUBCUT SCH ×4 (09:07→21:19)
[2021-04-04] MEDS: Hypromellose 0.3% Ophth Soln 15 ML Bottle EYEBOTH SCH ×3 (09:08→21:19)
[2021-04-04] MEDS: Memantine 10 MG Tab PO SCH (09:20)
[2021-04-04] MEDS: Losartan 50 MG Tab PO SCH (09:20)
[2021-04-04] MEDS: atorvaSTATin 20 MG Tab PO SCH (09:20)
[2021-04-04] MEDS: Hydrochlorothiazide 25 MG Tab PO SCH (09:20)
[2021-04-04] MEDS: Aspirin 81 MG Tab.EC PO SCH (09:20)
[2021-04-04] MEDS: Carvedilol 12.5 MG Tab PO SCH (09:20)
[2021-04-04] MEDS: amLODIPine 5 MG Tab PO SCH (09:21)
[2021-04-04] MEDS: Clopidogrel 75 MG Tab PO SCH (09:21)
[2021-04-04] MEDS ORDERED: LORazepam ORAL Concentrate 1MG/0.5ML U/D PO PRN (10:21)
--- NOTE | 2021-04-04 10:24 | PCM.PN ---
- General Info Date of Service: 04/04/21 Subjective Update: No acute events overnight. Patient slept most of the day yesterday but was awake overnight. Attempts to give pills with applesauce were unsuccessful. The patient appeared to pocket the medications in applesauce and was unable to swallow any of them. She is lethargic again today and not able to answer any questions. I did talk to both of her sons today at the bedside. I relayed my concerns that this stroke did provide significant disability and she may never recover. We discussed a transition to a comfort based approach versus a more aggressive approach which would include a feeding tube form nutrition and medications. They would like to see how things go over the next 24 to 48 hours but are leaning more towards a transition to comfort cares. We did review CODE STATUS and they were agreeable to a transition to DO NOT RESUSCITATE if her condition worsens. Functional Status: Denies: Tolerating Diet - Review of Systems General: Denies: Fever Neurological: Reports: Trouble Speaking, Weakness - Patient Data Vitals - Most Recent: Last Vital Signs Temp 35.2 C L 04/04/21 07:00 Pulse 65 04/04/21 07:00 Resp 18 04/04/21 07:00 BP 148/57 H 04/04/21 07:00 Pulse Ox 95 04/04/21 07:00 Weight - Most Recent: 71.668 kg I&O - Last 24 Hours: Intake & Output 04/03/21 04/04/21 04/04/21 22:59 06:59 14:59 Intake Total 150 30 Balance 150 30 Lab Results Last 24 Hours: Laboratory Results - last 24 hr 04/03/21 04/03/21 04/03/21 Range/Units 11:24 16:42 21:00 POC Glucose 145 H 132 H 142 H (74-106) mg/dL 04/03/21 04/04/21 Range/Units 21:11 07:27 POC Glucose 142 H 164 H (74-106) mg/dL Med Orders - Current: Current Medications Acetaminophen (Acetaminophen 325 Mg Tab) 650 mg PO Q4H PRN PRN Reason: Pain (Mild 1-3)/fever Albuterol (Albuterol 0.083% 2.5 Mg/3 Ml Neb Soln) 2.5 mg NEB Q4H PRN PRN Reason: Shortness Of Breath/wheezing Artificial Tears (Hypromellose 0.3% Ophth Soln 15 Ml Bottle) 0 ml EYEBOTH TID [facility] Last Admin: 04/04/21 09:08 Dose: 2 drop Documented by: Enoxaparin Sodium (Enoxaparin 80 Mg/0.8 Ml Syringe) 75 mg 1 mg/kg (75 mg) SUBCUT Q12H [facility] Last Admin: 04/04/21 04:42 Dose: 75 mg Documented by: Insulin Human Lispro (Insulin Lispro 100 Unit/Ml 3 Ml Kwikpen) 0 unit SUBCUT QIDACANDBED [facility]; Protocol Last Admin: 04/04/21 09:07 Dose: 2 units Documented by: Lorazepam (Lorazepam 2 Mg/Ml Sdv) 0.5 mg IVPUSH Q4H PRN PRN Reason: Nausea/Vomiting Ondansetron HCl (Ondansetron 4 Mg/2 Ml Sdv) 4 mg IV Q6H PRN PRN Reason: Nausea/Vomiting Ondansetron HCl (Ondansetron 4 Mg Tab.Dis) 4 mg PO Q6H PRN PRN Reason: Nausea able to take PO Sodium Chloride (Sodium Chloride 0.9% 10 Ml Syringe) 10 ml FLUSH ASDIRECTED PRN PRN Reason: Keep Vein Open Last Admin: 04/02/21 10:32 Dose: 10 ml Documented by: Discontinued Medications Amlodipine Besylate (Amlodipine 5 Mg Tab) 5 mg PO DAILY [facility] Last Admin: 04/04/21 09:21 Dose: Not Given Documented by: Aspirin (Aspirin 81 Mg Tab.Ec) 81 mg PO DAILY [facility] Last Admin: 04/04/21 09:20 Dose: Not Given Documented by: Atorvastatin Calcium (Atorvastatin 20 Mg Tab) 80 mg PO DAILY [facility] Last Admin: 04/04/21 09:20 Dose: Not Given Documented by: Carvedilol (Carvedilol 12.5 Mg Tab) 25 mg PO BID [facility] Last Admin: 04/04/21 09:20 Dose: Not Given Documented by: Clopidogrel Bisulfate (Clopidogrel 75 Mg Tab) 75 mg PO DAILY [facility] Last Admin: 04/04/21 09:21 Dose: Not Given Documented by: Donepezil HCl (Donepezil 10 Mg Tab) 10 mg PO BEDTIME [facility] Last Admin: 04/03/21 21:56 Dose: 10 mg Documented by: Famotidine (Famotidine 20 Mg Tab) 40 mg PO BEDTIME [facility] Last Admin: 04/03/21 21:56 Dose: 40 mg Documented by: Hydrochlorothiazide (Hydrochlorothiazide 25 Mg Tab) 25 mg PO DAILY [facility] Last Admin: 04/04/21 09:20 Dose: Not Given Documented by: Lactated Ringer's (Ringers, Lactated) 1,000 mls @ 125 mls/hr IV ASDIRECTED [facility] Last Admin: 04/02/21 11:50 Dose: 125 mls/hr Documented by: Losartan Potassium (Losartan 50 Mg Tab) 50 mg PO BID [facility] Last Admin: 04/04/21 09:20 Dose: Not Given Documented by: Magnesium Hydroxide (Magnesium Hydroxide 400 Mg/5 Ml Susp 30 Ml Cup) 30 ml PO Q12H PRN PRN Reason: Constipation Melatonin (Melatonin 3 Mg Tab) 9 mg PO BEDTIME [facility] Last Admin: 04/03/21 21:56 Dose: 9 mg Documented by: Memantine (Memantine 10 Mg Tab) 10 mg PO BID [facility] Last Admin: 04/04/21 09:20 Dose: Not Given Documented by: Senna/Docusate Sodium (Docusate Sodium/Sennosides 50-8.6 Mg Tab) 1 tab PO BID PRN PRN Reason: Constipation - Exam Quality Assessment: No: Supplemental Oxygen General: No Acute Distress. No: Alert Lungs: Normal Respiratory Effort GI/Abdominal Exam: Soft, No Distention Extremities: No Pedal Edema Neurological: Other (right facial droop ) Psy/Mental Status: No: Alert, Agitated - Patient Data Lab Results Last 24 hrs: Laboratory Results - last 24 hr 04/03/21 04/03/21 04/03/21 Range/Units 11:24 16:42 21:00 POC Glucose 145 H 132 H 142 H (74-106) mg/dL 04/03/21 04/04/21 Range/Units 21:11 07:27 POC Glucose 142 H 164 H (74-106) mg/dL Result Diagrams: 04/03/21 04:00 04/03/21 04:00 Sepsis Event Note - Evaluation Sepsis Screening Result: No Definite Risk - Focused Exam Vital Signs: Vital Signs Temp Pulse Resp BP Pulse Ox 04/04/21 07:00 35.2 C L 65 18 148/57 H 95 04/04/21 02:07 35.5 C L 66 16 157/56 H 96 04/03/21 23:00 35.4 C L 71 16 156/45 H 96 - Problem List & Annotations (1) CVA (cerebral vascular accident) SNOMED Code(s): 099283744 Code(s): I63.9 - CEREBRAL INFARCTION, UNSPECIFIED Status: Acute Current Visit: Yes Qualifiers: CVA mechanism: unspecified Qualified Code(s): I63.9 - Cerebral infarction, unspecified (2) Non-STEMI (non-ST elevated myocardial infarction) SNOMED Code(s): 60027351 Code(s): I21.4 - NON-ST ELEVATION (NSTEMI) MYOCARDIAL INFARCTION Status: Acute Current Visit: Yes (3) Hyperglycemia due to type 2 diabetes mellitus SNOMED Code(s): 099903308140619, 826890108886371 Code(s): E11.65 - TYPE 2 DIABETES MELLITUS WITH HYPERGLYCEMIA Status: Chronic Current Visit: No Qualifiers: Diabetes mellitus extermination supervisor insulin use: with extermination supervisor use Qualified Code(s): E11.65 - Type 2 diabetes mellitus with hyperglycemia; Z79.4 - USP (current) use of insulin (4) Mild cognitive impairment with memory loss SNOMED Code(s): 278846987 Code(s): G31.84 - MILD COGNITIVE IMPAIRMENT, SO STATED Status: Chronic Current Visit: No - Problem List Review Problem List Initiated/Reviewed/Updated: Yes - My Orders Last 24 Hours: My Active Orders 04/04/21 10:21 LORazepam [Ativan ORAL Concentrate 1MG/0.5 ML U/D] 0.5 mg PO Q4H PRN Resuscitation Status Routine 04/04/21 10:21 Morphine [Morphine 10 MG/0.5 ML Oral Syringe] 5 mg PO Q4H PRN 04/04/21 10:23 Discontinue Telemetry Monitoring [Cardiac Monitoring Discontinue] [RC] Click to Edit 04/04/21 11:30 GLUCOSE POC LAB TO COLLECT JPM [POC] QIDACANDBED 04/04/21 Lunch Nothing Per Oral Diet [DIET] 04/04/21 16:30 GLUCOSE POC LAB TO COLLECT JPM [POC] QIDACANDBED 04/04/21 21:00 GLUCOSE POC LAB TO COLLECT JPM [POC] QIDACANDBED 04/05/21 07:30 GLUCOSE POC LAB TO COLLECT JPM [POC] QIDACANDBED 04/05/21 11:30 GLUCOSE POC LAB TO COLLECT JPM [POC] QIDACANDBED 04/05/21 16:30 GLUCOSE POC LAB TO COLLECT JPM [POC] QIDACANDBED 04/05/21 21:00 GLUCOSE POC LAB TO COLLECT JPM [POC] QIDACANDBED 04/06/21 07:30 GLUCOSE POC LAB TO COLLECT JPM [POC] QIDACANDBED 04/06/21 11:30 GLUCOSE POC LAB TO COLLECT JPM [POC] QIDACANDBED 04/06/21 16:30 GLUCOSE POC LAB TO COLLECT JPM [POC] QIDACANDBED 04/06/21 21:00 GLUCOSE POC LAB TO COLLECT JPM [POC] QIDACANDBED 04/07/21 07:30 GLUCOSE POC LAB TO COLLECT JPM [POC] QIDACANDBED 04/07/21 11:30 GLUCOSE POC LAB TO COLLECT JPM [POC] QIDACANDBED 04/07/21 16:30 GLUCOSE POC LAB TO COLLECT JPM [POC] QIDACANDBED 04/07/21 21:00 GLUCOSE POC LAB TO COLLECT JPM [POC] QIDACANDBED - Plan Plan:: ASSESSMENT AND PLAN - 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 Stable overnight but not able to take any medications/swallow. Lethargic again this morning. Sons report that she did not recognize them today. She has not been out of bed. Very poor prognosis it appears. Transitioning to DO NOT RESUSCITATE status today. Family will discuss feeding tube versus comfort care and make a decision in the next day or 2. -Continue antiplatelet therapy if she becomes able to swallow -Enoxaparin as below -Physical therapy, occupational therapy and speech pathology -Consider hospice versus feeding tube depending on family wishes Non-ST elevation myocardial infarction-EKG did not suggest ischemia. Troponin level peaked around 0.5 and is now trending down. Patient still lethargic today. Family not interested in aggressive work-up or intervention. -Enoxaparin x48 hours -Continue medical management including beta-ramsey and antiplatelet therapy if she is able to take pills Alzheimer's dementia without behavioral disturbance-patient had been living independently with assisted living prior to the episode. She will likely require halfway facility placement if she survives the hospital stay -Melatonin at bedtime if she is able to take pills Insulin-dependent diabetes mellitus-no significant intake so far so we will hold off on any long-acting insulin. -Sliding scale insulin Maintenance issues - -DVT prophylaxis-enoxaparin -GI prophylaxis-not indicated -Nutrition-regular diabetic -Win catheter-could be considered for comfort if she does transition to end-of-life care but will hold off at this time CODE STATUS -discussed with both sons and power of patent attorney Minor today. She will be transitioned to a DO NOT RESUSCITATE and DO NOT INTUBATE status Disposition -I anticipate discharge to a halfway facility after the hospital stay, possibly with hospice, if she survives the hospital stay Primary care physician - Deshaun Humphreys M.D.
[2021-04-04] MEDS: Morphine 10 MG/0.5 ML Oral Syringe PO PRN (11:29)
[2021-04-05] MEDS: Hypromellose 0.3% Ophth Soln 15 ML Bottle EYEBOTH SCH (08:00)
[2021-04-05] MEDS: Insulin Lispro 100 Unit/ML 3 ML KwikPen SUBCUT SCH (08:07)
[2021-04-05 09:04] VITALS: BP 220/69; PULSE 103
[2021-04-05] MEDS: Morphine 10 MG/0.5 ML Oral Syringe PO PRN (09:15)
--- NOTE | 2021-04-05 10:20 | PCM.DCSUM1 ---
Discharge Summary - Hospital Course Brief History: 85-year-old female with history of insulin-dependent diabetes mellitus, mild cognitive deficits and alcohol dependence who presented after being found down on the floor. She was admitted for management of a left basal ganglia stroke and probable non-ST elevation myocardial infarction. Diagnosis: Stroke: Yes Modified Doni Scale: Modified Saffell Scale Score: 6 - Discharge Data Discharge Date: 04/05/21 Discharge Disposition: 20 Event(s) Leading to Patient's *Q: left basal ganglia CVA, NSTEMI. Family did not want transfer for aggressive interventions. Condition: - Referral to Home Health Primary Care Physician: PCP None - Discharge Diagnosis/Problem(s) (1) CVA (cerebral vascular accident) SNOMED Code(s): 275236955 ICD Code: I63.9 - CEREBRAL INFARCTION, UNSPECIFIED Status: Acute Current Visit: Yes Qualifiers: CVA mechanism: unspecified Qualified Code(s): I63.9 - Cerebral infarction, unspecified (2) Non-STEMI (non-ST elevated myocardial infarction) SNOMED Code(s): 49580714 ICD Code: I21.4 - NON-ST ELEVATION (NSTEMI) MYOCARDIAL INFARCTION Status: Acute Current Visit: Yes (3) Hyperglycemia due to type 2 diabetes mellitus SNOMED Code(s): 848837067729757, [id number] ICD Code: E11.65 - TYPE 2 DIABETES MELLITUS WITH HYPERGLYCEMIA Status: Chronic Current Visit: No Qualifiers: Diabetes mellitus chcf insulin use: with chcf use Qualified Code(s): E11.65 - Type 2 diabetes mellitus with hyperglycemia; Z79.4 - longterm (current) use of insulin (4) Mild cognitive impairment with memory loss SNOMED Code(s): 077606587 ICD Code: G31.84 - MILD COGNITIVE IMPAIRMENT, SO STATED Status: Chronic Current Visit: No - Patient Summary/Data Consults: Consultations 04/02/21 15:39 OT Evaluation and Treatment [CONS] Routine Please Evaluate and Treat. OT Reason for Consult: ADL's Special Instructions: stroke This query below is only for informational purposes and is not editable. PT Evaluation and Treatment [CONS] Routine Please Evaluate and Treat. PT Reason for Consult: Strengthening This query below is only for informational purposes and is not editable. CUSTODIAN MANAGER Evaluation and Treatment [CONS] Routine Please Evaluate and Treat CUSTODIAN MANAGER Reason for Consult: Other (Type Response) Pending Discharge: dysarthria, CVA Discharge Disposition: [facility] Facility This query below is only for informational purposes and is not editable. Hospital Course: Anabela presented to the emergency room after being found down at her assisted living facility. There was right facial droop and expressive aphasia as well as some right-sided weakness. Work-up in the emergency room did reveal evidence for a left basal ganglia stroke that would fit with her known deficits. Troponin level was also elevated at 0.3 raising concern for non-ST elevation myocardial infarction. Discussions were held with the family about transfer to a tertiary care center and they felt that this would be beyond the wishes of the patient and they felt that any sort of interventions likely would not help given her poor quality of life and poor functional status prior to the event. Patient was admitted to the hospital and we did initiate treatment for the non- ST elevation myocardial infarction with systemic anticoagulation along with blood pressure control. Initially the patient was able to communicate even tho ugh it was not to a great extent. Her troponin levels did rise following admission up to a peak of nearly 0.6 before plateauing and trending down. The patient did not ever report any chest pain. She did complete 48 hours of systemic anticoagulation. Unfortunately her condition declined with progressive difficulties with speech. She was not able to swallow medications even with pudding or applesauce. She had progression of her right-sided weakness. I did discuss the situation with her 2 sons the day prior to her and the patient was transitioned to a DO NOT RESUSCITATE and DO NOT INTUBATE status. They were agreeable with continuing therapies to see if she could make some improvements and potentially get to a snf for rehab. They did feel that if she were to get any worse that a transition to comfort cares would be the most appropriate course of treatment. On the morning of discharge/ the patient was noted to have lower oxygen saturations in the low heart rate. She was placed on supplemental oxygen and suction therapy was completed. She appeared to have a good response with improvement in her saturations and heart rate. When we went to check on her just before 10 AM the patient was noted to have agonal respirations and no palpable pulse. She passed peacefully at 0955 on April 05. Her 2 sons were at the bedside at the time of her . No attempts at resuscitation were made because of previous discussed wishes. Cause of was likely a combination of stroke and heart attack. - Discharge Plan Home Medications: Home Meds Aspirin [Halfprin] 81 mg PO DAILY 02/01/16 [History] Cholecalciferol (Vitamin D3) [Vitamin D3] 5,000 units PO DAILY 02/01/16 [History] Clopidogrel [Plavix] 75 mg PO DAILY 02/01/16 [History] Donepezil HCl [Aricept] 10 mg PO BEDTIME 02/01/16 [History] Losartan Potassium [Cozaar] 50 mg PO BID 02/01/16 [History] Multivitamin with Minerals [Multiple Vitamin] 1 tab PO DAILY 02/01/16 [History] Polyethylene Glycol/Polyvinyl [Hypotears Eye Drops] 2 drop EYEBOTH TID 02/01/16 [History] amLODIPine [Norvasc] 5 mg PO DAILY 02/01/16 [History] atorvaSTATin [Lipitor] 40 mg PO DAILY 02/01/16 [History] carvediloL [Coreg] 25 mg PO BID 02/01/16 [History] Famotidine 40 mg PO BEDTIME 04/02/21 [History] Insulin Glarg,Human.Rec.Analog [Lantus Solostar] 22 units SUBCUT BEDTIME 04/02/21 [History] Insulin Lispro [HumaLOG] 6 units SUBCUT BID 04/02/21 [History] Melatonin 3 mg PO BEDTIME 04/02/21 [History] Memantine HCl 10 mg PO BID 04/02/21 [History] hydroCHLOROthiazide [Hydrochlorothiazide] 25 mg PO DAILY 04/02/21 [History] Forms: ED Department Discharge Referrals: PCP,None [Primary Care Provider] - - Discharge Summary/Plan Comment DC Time >30 min.: No - Patient Data Vitals - Most Recent: Last Vital Signs Temp 37.4 C 04/05/21 09:02 Pulse 103 H 04/05/21 09:02 Resp 28 H 04/05/21 09:02 BP 220/69 H 04/05/21 09:02 Pulse Ox 89 L 04/05/21 09:02 Weight - Most Recent: 71.668 kg Lab Results - Last 24 hrs: Laboratory Results - last 24 hr 04/04/21 04/04/21 04/04/21 Range/Units 11:34 16:21 20:55 POC Glucose 138 H 130 H 168 H (74-106) mg/dL 04/04/21 04/05/21 Range/Units 21:00 07:27 POC Glucose 168 H 178 H (74-106) mg/dL Med Orders - Current: Current Medications Acetaminophen (Acetaminophen 325 Mg Tab) 650 mg PO Q4H PRN PRN Reason: Pain (Mild 1-3)/fever Albuterol (Albuterol 0.083% 2.5 Mg/3 Ml Neb Soln) 2.5 mg NEB Q4H PRN PRN Reason: Shortness Of Breath/wheezing Last Admin: 04/05/21 09:08 Dose: 2.5 mg Documented by: Artificial Tears (Hypromellose 0.3% Ophth Soln 15 Ml Bottle) 0 ml EYEBOTH TID [facility] Last Admin: 04/05/21 08:00 Dose: 2 drop Documented by: Insulin Human Lispro (Insulin Lispro 100 Unit/Ml 3 Ml Kwikpen) 0 unit SUBCUT QIDACANDBED [facility]; Protocol Last Admin: 04/05/21 08:07 Dose: 2 units Documented by: Lorazepam (Lorazepam 2 Mg/Ml Sdv) 0.5 mg IVPUSH Q4H PRN PRN Reason: Nausea/Vomiting Lorazepam (Lorazepam Oral Concentrate 1mg/0.5ml U/D) 0.5 mg PO Q4H PRN PRN Reason: Anxiety Morphine Sulfate (Morphine 10 Mg/0.5 Ml Oral Syringe) 5 mg PO Q4H PRN PRN Reason: Pain Last Admin: 04/05/21 09:15 Dose: 5 mg Documented by: Ondansetron HCl (Ondansetron 4 Mg/2 Ml Sdv) 4 mg IV Q6H PRN PRN Reason: Nausea/Vomiting Ondansetron HCl (Ondansetron 4 Mg Tab.Dis) 4 mg PO Q6H PRN PRN Reason: Nausea able to take PO Sodium Chloride (Sodium Chloride 0.9% 10 Ml Syringe) 10 ml FLUSH ASDIRECTED PRN PRN Reason: Keep Vein Open Last Admin: 04/02/21 10:32 Dose: 10 ml Documented by: Discontinued Medications Amlodipine Besylate (Amlodipine 5 Mg Tab) 5 mg PO DAILY [facility] Last Admin: 04/04/21 09:21 Dose: Not Given Documented by: Aspirin (Aspirin 81 Mg Tab.Ec) 81 mg PO DAILY [facility] Last Admin: 04/04/21 09:20 Dose: Not Given Documented by: Atorvastatin Calcium (Atorvastatin 20 Mg Tab) 80 mg PO DAILY [facility] Last Admin: 04/04/21 09:20 Dose: Not Given Documented by: Carvedilol (Carvedilol 12.5 Mg Tab) 25 mg PO BID [facility] Last Admin: 04/04/21 09:20 Dose: Not Given Documented by: Clopidogrel Bisulfate (Clopidogrel 75 Mg Tab) 75 mg PO DAILY [facility] Last Admin: 04/04/21 09:21 Dose: Not Given Documented by: Donepezil HCl (Donepezil 10 Mg Tab) 10 mg PO BEDTIME [facility] Last Admin: 04/03/21 21:56 Dose: 10 mg Documented by: Enoxaparin Sodium (Enoxaparin 80 Mg/0.8 Ml Syringe) 75 mg 1 mg/kg (75 mg) SUBCUT Q12H [facility] Stop: 04/04/21 20:00 Last Admin: 04/04/21 15:36 Dose: 75 mg Documented by: Famotidine (Famotidine 20 Mg Tab) 40 mg PO BEDTIME [facility] Last Admin: 04/03/21 21:56 Dose: 40 mg Documented by: Hydrochlorothiazide (Hydrochlorothiazide 25 Mg Tab) 25 mg PO DAILY [facility] Last Admin: 04/04/21 09:20 Dose: Not Given Documented by: Lactated Ringer's (Ringers, Lactated) 1,000 mls @ 125 mls/hr IV ASDIRECTED [facility] Last Admin: 04/02/21 11:50 Dose: 125 mls/hr Documented by: Losartan Potassium (Losartan 50 Mg Tab) 50 mg PO BID [facility] Last Admin: 04/04/21 09:20 Dose: Not Given Documented by: Magnesium Hydroxide (Magnesium Hydroxide 400 Mg/5 Ml Susp 30 Ml Cup) 30 ml PO Q12H PRN PRN Reason: Constipation Melatonin (Melatonin 3 Mg Tab) 9 mg PO BEDTIME [facility] Last Admin: 04/03/21 21:56 Dose: 9 mg Documented by: Memantine (Memantine 10 Mg Tab) 10 mg PO BID [facility] Last Admin: 04/04/21 09:20 Dose: Not Given Documented by: Senna/Docusate Sodium (Docusate Sodium/Sennosides 50-8.6 Mg Tab) 1 tab PO BID PRN PRN Reason: Constipation
== END 2021-04-05 13:45 | disposition expired | DRG 64 ==
LOC: JP.ED 09:35 → JP.MS 14:55
PROVIDERS: ADMIT Internal Medicine; ATTEND Internal Medicine
DX: I63.9 Cerebral infarction, unspecified (principal); I21.4 Non-ST elevation (NSTEMI) myocardial infarction; G81.91 Hemiplegia, unspecified affecting right dominant side; I48.20 Chronic atrial fibrillation, unspecified; R47.01 Aphasia; E11.65 Type 2 diabetes mellitus with hyperglycemia; Z66 Do not resuscitate; E11.22 Type 2 diabetes mellitus with diabetic chronic kidney disease; F10.20 Alcohol dependence, uncomplicated; R29.810 Facial weakness; H54.7 Unspecified visual loss; K21.9 Gastro-esophageal reflux disease without esophagitis; I12.9 Hypertensive chronic kidney disease with stage 1 through stage 4 chronic kidney disease, or unspecified chronic kidney disease; N18.9 Chronic kidney disease, unspecified; M19.90 Unspecified osteoarthritis, unspecified site; G30.9 Alzheimer's disease, unspecified; F02.80 Dementia in other diseases classified elsewhere, unspecified severity, without behavioral disturbance, psychotic disturbance, mood disturbance, and anxiety; M81.0 Age-related osteoporosis without current pathological fracture; H04.129 Dry eye syndrome of unspecified lacrimal gland; Z79.4 Long term (current) use of insulin; Z79.82 Long term (current) use of aspirin; Z79.899 Other long term (current) drug therapy; Z98.51 Tubal ligation status; Z98.890 Other specified postprocedural states; Z79.02 Long term (current) use of antithrombotics/antiplatelets
CPT/HCPCS: 36415; 70450; 80048; 82550; 84484; 85027; 93005; J7120; 82947; 97110-GP; 97162-GP; 97165-GO; 97530-GP; 99285-25; A9270-GY; J1650; J1815